=== PATIENT | female | born 1965 | race Caucasian/White ===

== ENCOUNTER 2017-09-22 11:27 | Observation (INO) | payer BC, OTHER ==
[2017-09-22 12:04] LABS: #Eosinphils 0.3 thou/uL (0.0-0.7); #Lymphocytes 2.9 thou/uL (1.20-3.40); #Monocytes 0.7 thou/uL (0.11-0.59); #Neutrophils 6.2 thou/uL (1.40-6.50); %Basophils 0.3 % (0.0-1.0); %Eosinophils 3.2 % (0.0-10.0); %Lymphocytes 28.8 % (21.0-51.0); %Monocytes 6.9 % (0.0-10.0); Hematocrit 38.2 % (36.0-47.0); Mean Platelet Volume 6.5 fL (7.4-10.4); Red Blood Cell (RBC) Count 4.08 mill/uL (4.20-5.40); White Blood Cell (WBC) Count 10.1 thou/uL (4.8-10.8)
[2017-09-22 12:22] LABS: ALT (SGPT) 34 U/L (8-55); AST (SGOT) 24 U/L (5-34); Alkaline Phosphatase 128 U/L (40-150); Anion Gap 11 mmol/L (10-20); BUN (Urea Nitrogen) 6 mg/dL (9.8-20.1); Bilirubin, Total 0.2 mg/dL (0.2-1.2); CK (CPK) 109 U/L (29-168); Calc. Creatinine Clearance 0 mL/min (70-130); Calcium 8.9 mg/dL (7.8-10.44); Carbon Dioxide 24 mmol/L (22-29); Chloride 110 mmol/L (98-107); Estimated GFR-MDRD 77; Globulin 2.5 g/dL (2.4-3.5); Lipase 13 U/L (8-78); Protein, Total 6.3 g/dL (6.0-8.3)
[2017-09-22] MEDS ORDERED: Nitroglycerin 2% Ointment 1 INCH/1 GM Packet ONE (12:24)
[2017-09-22 13:03] LABS: Troponin I Less than 0.010 ng/mL (< 0.028)
[2017-09-22] MEDS ORDERED: Senokot 8.6 MG TAB PO PRN (13:52)
[2017-09-22] MEDS ORDERED: Nitroglycerin 0.4 MG TAB (25 Tab Bottle) PO PRN (13:52)
[2017-09-22] MEDS ORDERED: Guaifenesin DM 100-10/5 ML UDCUP PO PRN (13:52)
[2017-09-22] MEDS ORDERED: Acetaminophen 325 MG TAB PO PRN (13:52)
[2017-09-22] MEDS ORDERED: Morphine PF 1 MG/ML SYR IVP PRN (14:24)
[2017-09-22 14:49] VITALS: BMI 38.0
[2017-09-22] MEDS: Sodium Chloride 0.9% 1,000 ML IV SCH (15:21)
--- NOTE | 2017-09-22 15:37 | RAD ---
PORTABLE UPRIGHT FRONTAL CHEST RADIOGRAPH: DATE: 09/22/17. COMPARISON: None. HISTORY: Chest pain. FINDINGS: There is no pneumothorax, pleural fluid, focal consolidation, or alveolar edema. Heart and mediastin al contours unremarkable. IMPRESSION: No acute findings. POS: [facility]
[2017-09-22 15:42] LABS: Troponin I 0.011 ng/mL (< 0.028)
--- NOTE | 2017-09-22 16:18 | ULT ---
BILATERAL LOWER EXTREMITY VENOUS DOPPLER WITH SPECTRAL ANALYSIS AND COLOR FLOW EVALUATION 09/22/17 HISTORY: Injury to left knee on Sunday. Left knee pain. Edema. FINDINGS: Walls scale, color flow, doppler evaluation, with spectral analysis of the bilateral lower extremity v enous structures is performed with 2D imaging. The bilateral lower extremity common femoral, superfic ial femoral, popliteal, posterior tibial, most proximal greater saphenous and profunda femoral veins are imaged. There is normal lumen compressibility, flow and augmentation visualized deep venous structures bilate ral lower extremities. IMPRESSION: No evidence of a DVT involving the visualized deep venous structures bilateral lower extremities. POS: [facility]
--- NOTE | 2017-09-22 16:51 | HP ---
REASON FOR ADMISSION: Chest pain. HISTORY OF PRESENTING ILLNESS: Patient gives history of having chest pressure which was more of burning in sensation which lasted for 10 minutes around 11 a.m. This pressure/burning was radiating up to her neck. There was also radiation of this to left axilla. She felt like she needed more air. She has never had these symptoms before, hence she called EMS. EMS on arrival gave her aspirin 325 mg and nitroglycerin which completely relieved her pain. Currently , no complaints of cough or expectoration. No history of fever. She gives history of having had cardiac catheterization done when she was 33 years old, which was normal. She also gives history of sustaining left knee injury 2 days back and has been on Ultram which she has taken yesterday and this morning. She is also on Vyvanse from last 2 weeks for low energy. PAST MEDICAL AND SURGICAL HISTORY: History of sinus arrhythmia, bipolar disorder, anxiety, urinary incontinence, appendectomy, cholecystectomy, and partial hysterectomy. CURRENT MEDICATIONS: The patient is on duloxetine 90 mg p.o. daily, Klonopin 1 mg p.o. twice daily, Vyvanse 60 mg p.o. daily, Myrbetriq daily, lithium 600 mg p.o. twice daily. ALLERGIES: Allergic to DEPAKOTE, PHENERGAN, REGLAN, THORAZINE and TRAZODONE. PERSONAL HISTORY: Does not abuse alcohol or drugs. No history of smoking. 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 FAMILY HISTORY: Mother has history of hypertension. Father at the age of 55 years and was an alcoholic and had abused drugs as well. REVIEW OF SYSTEMS: The following complete review of systems was negative, unless otherwise mentioned in the HPI or below: Constitutional: Weight loss or gain, ability to conduct usual activities. Skin: Rash, itching. Eyes: Double vision, pain. ENT/Mouth: Nose bleeding, neck stiffness, pain, tenderness. Cardiovascular: Palpitations, dyspnea on exertion, orthopnea. Respiratory: Shortness of breath, wheezing, cough, hemoptysis, fever or night sweats. Gastrointestinal: Poor appetite, abdominal pain, heartburn, nausea, vomiting, constipation, or diarrhea. Genitourinary: Urgency, frequency, dysuria, nocturia. Musculoskeletal: Pain, swelling. Neurologic/Psychiatric: Anxiety, depression. Allergy/Immunologic: Skin rash, bleeding tendency. PHYSICAL EXAMINATION: GENERAL: The patient is a 51-year-old female who is currently chest pain free. VITAL SIGNS: Blood pressure 142/101, pulse 87 per minute, respiratory rate 18 per minute, temperature 99.6 degrees Fahrenheit, saturating 92% on room air. NECK: Supple, no elevated JVD. EYES: Extraocular muscles intact. Pupils reacting to light. ORAL CAVITY: Mucous membranes are moist. No exudates or congestion. CARDIOVASCULAR SYSTEM: S1, S2 heard. Regular rhythm. RESPIRATORY SYSTEM: Air entry 1+ bilateral. No rales or rhonchi. ABDOMEN: Soft, bowel sounds heard. No tenderness, rigidity or guarding. EXTREMITIES: No peripheral edema or calf tenderness. Left knee, there is mild tenderness over the anterior aspect of the patella; otherwise, no gross effusion or deformity seen. Range of motion is normal in both lower extremities and knees. VASCULAR SYSTEM: Peripheral pulses 2+ bilateral, no ischemic ulcerations or gangrene. CENTRAL NERVOUS SYSTEM: No gross focal deficits seen. Patient is alert, awake , oriented x3. PSYCHIATRIC SYSTEM: The patient's mood is euthymic. No hallucinations or delusions. IMAGING AND LABORATORY DATA: EKG done shows normal sinus rhythm at 87 beats per minute. White count of 10, hemoglobin and hematocrit 12 and 38, platelet count 514 with 60% neutrophils, MCV is 93. Electrolytes are stable. BUN 6, creatinine 0.7, glucose 116. Liver enzymes within normal limits. First set of cardiac enzymes are negative. Albumin is 3.8. Lipase is 13. Chest x-ray by my review shows no acute cardiopulmonary abnormalities. EKG done show normal sinus rhythm at 87 beats per minute. CLINICAL IMPRESSION AND PLAN: The patient will be under observation on telemetry for chest pain, rule out acute coronary syndrome. We will obtain two more sets of troponin and a nuclear stress test. In view of elevated platelets and her recent knee injury which appears to be blunt injury, we will obtain ultrasound venous Doppler of lower extremities to rule out DVT. She has had plain x-rays done 2 days back at [facility] urgent care clinic. As far as she knows, there was no fractures. We will place her on a small dose of Lopressor with mild uncontrolled hypertension. She will be on aspirin and continue Klonopin, lithium, Myrbetriq at her home doses. We will reduce her Cymbalta 60 mg daily for now. She has mild temperature on arrival and she will be closely monitored for the same. There are no obvious signs of infection at present. CRISTINE
[2017-09-22 19:19] LABS: Troponin I Less than 0.010 ng/mL (< 0.028)
[2017-09-22] MEDS: clonazePAM 1 MG TAB PO SCH (20:56)
[2017-09-22] MEDS: Metoprolol Tartrate 25 MG TAB PO SCH (20:57)
[2017-09-22] MEDS ORDERED: FLU VACC QS2017-18 36 mo. & older 0.5 ML SYRINGE IM ONE (21:00)
--- NOTE | 2017-09-22 21:22 | CON ---
DATE OF CONSULTATION: 09/22/2017 REASON FOR CONSULTATION: Nonsustained SVT and chest pain. HISTORY OF PRESENT ILLNESS: Ms. Bronson is a pleasant 51-year-old white female who comes to the hospital for chest pain. She was admitted for rule out and is scheduled to have a stress test and echocardiogram tomorrow. During her stay, she has been on telemetry monitoring and she was found to have a run of nonsustained SVT, heart rate to 180 for about 15 beats. She was very symptomatic during the event. She has seen the irb compliance coordinator in the past since she was 33 years old. She had a heart catheterization and told everything was normal. This is in the setting of having LV dysfunction from several psych medicines according to her. Currently, she feels back to normal. She denies any chest pain, tightness, or pressure. PAST MEDICAL HISTORY: 1. History of atrial arrhythmias in the past according to her, I do not see any specific condition. 2. Bipolar disorder. 3. Anxiety. 4. Depression. 5. Urinary incontinence. PAST SURGICAL HISTORY: 1. Appendectomy. 2. Cholecystectomy. 3. Partial hysterectomy. OUTPATIENT MEDICATIONS: 1. Duloxetine. 2. Klonopin. 3. Vyvanse, this is lisdexamfetamine, she started on this two weeks ago. 4. Myrbetriq. 5. [place] 600 mg twice a day. ALLERGIES: DEPAKOTE, PHENERGAN, REGLAN, THORAZINE and TRAZODONE. SOCIAL HISTORY: No alcohol, tobacco or drugs. 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 FAMILY HISTORY: Mother with high blood pressure. Father at 55 from alcohol abuse and drugs. REVIEW OF SYSTEMS: Twelve-point review of systems was done and is all negative unless stated in the history of present illness. PHYSICAL EXAMINATION: VITAL SIGNS: Temperature 98.3, pulse 91, respiratory rate 18, satting 95% on room air, blood pressure 147/75. GENERAL: Awake, alert, oriented x3, in no distress. HEENT: Normocephalic, atraumatic. NECK: Supple. LUNGS: Clear. CARDIOVASCULAR: S1, S2, no S3, S4, no murmurs or rubs. ABDOMEN: Soft, positive bowel sounds. EXTREMITIES: No edema. SKIN: Warm and dry. LABORATORY WORK: Reviewed. White count of 10, hemoglobin 12, hematocrit 38, platelet count of 514. Chemistries are unremarkable except for glucose of 116. Troponins are negative x3. Toxicology: [place] level was slowed at 0.78. EKG is unremarkable. Chest x-ray was unremarkable. Lower extremity venous ultrasound showed no evidence of DVT. ASSESSMENT: 1. Nonsustained supraventricular tachycardia. 2. Chest pain. 3. Bipolar disorder. PLAN: Most likely SVT is related to her vyvanse use for her ADHD. She tells me that her life was really difficult without evidence, she feels she is back to normal and she would like to continue to take it. At this time, we will put her on a low dose beta lowell as her blood pressure and heart rate do allow and hopefully this will keep this at baseline. If she continues to have runs of SVT or becomes sustained, we will recommend stopping the amphetamine medication. Otherwise, continue plans on doing a nuclear stress test and echocardiogram in the morning. Thank you for letting us participate in the care of your patient. We will follow. CRISTINE
[2017-09-23] MEDS: Sodium Chloride 0.9% 1,000 ML IV SCH (05:36)
[2017-09-23 06:11] LABS: #Eosinphils 0.3 thou/uL (0.0-0.7); #Lymphocytes 2.8 thou/uL (1.20-3.40); #Monocytes 0.8 thou/uL (0.11-0.59); #Neutrophils 8.6 thou/uL (1.40-6.50); %Basophils 0.3 % (0.0-1.0); %Eosinophils 2.8 % (0.0-10.0); %Lymphocytes 22.5 % (21.0-51.0); %Monocytes 6.2 % (0.0-10.0); Hematocrit 41.1 % (36.0-47.0); Mean Platelet Volume 6.8 fL (7.4-10.4); Red Blood Cell (RBC) Count 4.37 mill/uL (4.20-5.40); White Blood Cell (WBC) Count 12.6 thou/uL (4.8-10.8)
[2017-09-23 06:33] LABS: Anion Gap 10 mmol/L (10-20); BUN (Urea Nitrogen) 6 mg/dL (9.8-20.1); Calc. Creatinine Clearance 134 mL/min (70-130); Calcium 9.3 mg/dL (7.8-10.44); Carbon Dioxide 24 mmol/L (22-29); Chloride 115 mmol/L (98-107); Cholesterol 234 mg/dl (< 200 Desired); Estimated GFR-MDRD 75; LDL Cholesterol, Calculated 163 mg/dL
[2017-09-23 06:52] LABS: Free T3 2.59 pg/mL (1.71-3.71)
[2017-09-23] MEDS: clonazePAM 1 MG TAB PO SCH (08:38)
[2017-09-23] MEDS ORDERED: Enoxaparin Sodium 40 MG/0.4 ML SYRINGE SC SCH (09:00)
[2017-09-23] MEDS ORDERED: Aspirin 325 MG TAB PO SCH (09:00)
--- NOTE | 2017-09-23 09:35 | PDOC.PN ---
- Subjective Encounter Start Date: 09/23/17 Encounter Start Time: 07:15 Subjective: is sitting on bed, no palp or chest pressure now - Objective Resuscitation Status: Resuscitation Status FULL:Full Resuscitation MAR Reviewed: Yes Vital Signs & Weight: Vital Signs (12 hours) Temp Pulse Resp BP Pulse Ox 09/23/17 07:44 96.9 F L 72 18 09/23/17 07:32 96.9 F L 72 18 145/86 H 92 L 09/23/17 05:25 98.1 F 71 18 123/67 94 L Weight Weight 228 lb 8 oz I&O: 09/22/17 09/23/17 09/24/17 06:59 06:59 06:59 Intake Total 1801 Output Total 3600 Balance -1799 Result Diagrams: 09/23/17 05:13 09/23/17 05:13 Phys Exam - Physical Examination HEENT: PERRLA, moist MMs Neck: no JVD, supple Respiratory: no wheezing, no rales Cardiovascular: RRR, no significant murmur Gastrointestinal: soft, non-tender, positive bowel sounds Musculoskeletal: no edema, pulses present Neurological: non-focal, moves all 4 limbs Psychiatric: A&O x 3 Dx/Plan (1) Chest pain Code(s): R07.9 - CHEST PAIN, UNSPECIFIED Status: Acute Qualifiers: Chest pain type: unspecified Qualified Code(s): R07.9 - Chest pain, unspecified (2) Dyslipidemia Code(s): E78.5 - HYPERLIPIDEMIA, UNSPECIFIED Status: Acute (3) Bipolar disorder Code(s): F31.9 - BIPOLAR DISORDER, UNSPECIFIED Status: Chronic Qualifiers: Psychotic features: with psychotic features (4) Anxiety Code(s): F41.9 - ANXIETY DISORDER, UNSPECIFIED Status: Chronic - Plan await echo and stress test -: brief svt episode last evening -: to f/u with her pschiatrist in [place] in 1 week -: may dc home if stress is normal and ok with cardio -: currently on small doses of cardizem and lopressor * . Review of Systems - Medications/Allergies Allergies/Adverse Reactions: Allergies Allergy/AdvReac Type Severity Reaction Status Date / Time chlorpromazine Allergy Verified 09/22/17 14:35 [From Thorazine] divalproex sodium Allergy Verified 09/22/17 14:35 [From Depakote] metoclopramide [From Reglan] Allergy Verified 09/22/17 14:35 promethazine [From Phenergan] Allergy Verified 09/22/17 14:35 trazodone Allergy Verified 09/22/17 14:35 Medications: Current Medications Acetaminophen (Tylenol) 650 mg PO Q4H PRN PRN Reason: Headache/Fever or Pain Aspirin (Aspirin) 325 mg PO DAILY [facility] Last Admin: 09/23/17 08:38 Dose: 325 mg Atorvastatin Calcium (Lipitor) 40 mg PO [facility] Clonazepam (Klonopin) 1 mg PO BID [facility] Last Admin: 09/23/17 08:38 Dose: 1 mg Diltiazem HCl (Cardizem) 30 mg PO TID [facility] Last Admin: 09/22/17 20:57 Dose: 30 mg Duloxetine HCl (Cymbalta) 60 mg PO DAILY [facility] Last Admin: 09/23/17 08:38 Dose: 60 mg Enoxaparin Sodium (Lovenox) 40 mg SC 0900 [facility] Last Admin: 09/23/17 08:38 Dose: 40 mg Guaifenesin/Dextromethorphan (Robitussin Dm) 15 ml PO Q4H PRN PRN Reason: Cough Sodium Chloride (Normal Saline 0.9%) 1,000 mls @ 70 mls/hr IV .[id number] [facility] Last Admin: 09/23/17 05:36 Dose: 1,000 mls Stebbins Carbonate (Lithobid Er) 600 mg PO BID[facility] Last Admin: 09/23/17 08:38 Dose: 600 mg Metoprolol Tartrate (Lopressor) 25 mg PO BID [facility] Last Admin: 09/22/17 20:57 Dose: 25 mg Mirabegron (Myrbetriq Er) 25 mg PO DAILY [facility] Last Admin: 09/23/17 08:38 Dose: 25 mg Morphine Sulfate (Duramorph) 2 mg IVP Q4H PRN PRN Reason: Chest Pain/BP Elevations Nitroglycerin (Nitrostat) 0.4 mg PO Q5MIN PRN PRN Reason: Chest Pain Senna (Senokot) 2 tab PO HSPRN PRN PRN Reason: Constipation
[2017-09-23 12:10] VITALS: BP 163/79; TEMP 98.3
[2017-09-23] MEDS: Metoprolol Tartrate 25 MG TAB PO SCH (14:11)
[2017-09-23] MEDS ORDERED: ADENOSINE 60 MG/20 ML VIAL ONE (14:43)
--- NOTE | 2017-09-23 14:55 | NM ---
STRESS-ONLY MYOCARDIAL PERFUSION STUDY: DATE: 09/23/17. HISTORY: Chest pain. RADIOPHARMACEUTICAL: 27.8 mCi Technetium 99m sestamibi, IV at stress. MEDICATIONS: 19.2 mL (57.7 mg) adenosine, IV. FINDINGS: There is normal uptake of radiotracer seen within the left ventricular myocardium on the stress acqui sition. No defect is seen. The rotated planar images demonstrate prominence of breast attenuation. Gated images show normal ventricular wall motion and wall thickening. The calculated left ventricul ar ejection fraction is 80%. Quantitative analysis shows no significant defect on attenuation-correc gal images. IMPRESSION: 1. Normal myocardial perfusion study without evidence of defect seen in the left ventricular myocard ium to suggest ischemia or scarring. 2. Normal left ventricular function with normal left ventricular ejection fraction of 80%. POS: [facility]
--- NOTE | 2017-09-23 15:49 | PDOC.CTH ---
Cardiology Progress Note - Subjective Patient seen earlier today. This is a late entry. She is doing well. No chest pain, tightness, pressure, SOB. Her stress was normal - Objective Vital Signs Temp Pulse Resp BP Pulse Ox 09/23/17 12:08 98.3 F 75 18 163/79 H 98 09/23/17 07:44 96.9 F L 72 18 09/23/17 07:32 96.9 F L 72 18 145/86 H 92 L 09/23/17 05:25 98.1 F 71 18 123/67 94 L Weight 228 lb 8 oz 09/22/17 09/23/17 09/24/17 06:59 06:59 06:59 Intake Total 1801 1231 Output Total 3600 900 Balance -1799 331 - Physical Examination General/Neuro: alert & oriented x3, NAD Neck: no JVD present Lungs: unlabored respirations Heart: RRR Abdomen: NT/ND Extremities: other: (no edema) - Telemetry Telemetry Rhythm: NSR - Labs Result Diagrams: 09/23/17 05:13 09/23/17 05:13 Troponin/CKMB CK-MB (CK-2) 2.1 ng/mL (0-6.6) 09/22/17 11:52 Troponin I Less than 0.010 ng/mL (< 0.028) 09/22/17 18:23 - Assessment/Plan 1. Non sustained SVT 2. chest pain 3. ADHD on Vyvanse (lisdexamphetamine) PLAn - May discharge home - Low dose BB for now. - Follow up in 1 month.
--- NOTE | 2017-09-23 18:11 | DIS ---
DATE OF ADMISSION: 09/22/2017 DATE OF DISCHARGE: 09/23/2017 DISCHARGE DISPOSITION: To home. PRIMARY DISCHARGE DIAGNOSIS: Chest pain/pressure which is noncardiac. SECONDARY DISCHARGE DIAGNOSES: Bipolar disorder, dyslipidemia, anxiety. PROCEDURES DONE DURING HOSPITALIZATION: The patient has had an echo with 2D Doppler done which showed ejection fraction of 60-65%. Chest x-ray done showed no acute cardiopulmonary abnormalities. Nuclear stress test done showed ejection fraction of 80% with no wall motion abnormalities or reversible ischemia seen. H and H 13 and 41, platelet count 564. Troponin x3 negative. Total cholesterol 234, triglycerides 117, LDL was 163 with HDL of 48. TSH 1.98 , free T3 of 2.5, free T4 of 0.86. Her lithium levels were 0.78. DISCHARGE MEDICATIONS: Patient to continue all her home medications as before along with Lopressor 25 mg p.o. twice daily and Lipitor 40 mg p.o. at bedtime. Please note patient is on Klonopin 1 mg twice daily, duloxetine 90 mg daily, Viberzi 75 mg at bedtime, lithium 600 mg twice daily, Myrbetriq 50 mg daily, olanzapine 5 mg at bedtime, Ultram p.r.n. for pain. ALLERGIES: She is allergic to CHLORPROMAZINE, DEPAKOTE and REGLAN. DISCHARGE PLAN: Patient to follow up with her psychiatrist in 1 week. She also needs to find a new primary care physician and follow up within 1-2 weeks. INPATIENT CONSULTS: Dr. Mohan for Cardiology. BRIEF COURSE DURING HOSPITALIZATION: Patient initially came to ER with complaints of chest pressure/burning sensation with radiation to neck and left axilla. She had also started new medications and had been escalating her Vyvanse dose from last 2 weeks for her low energy. In view of this history, the patient was placed under observation on telemetry. She has had 3 sets of troponin done which were negative. Nuclear stress test done showed no reversible ischemia. Echo has not revealed any abnormality. She had brief 10 beat SVT and has had consultation with Dr. Mohan of Cardiology. Likely her nonsustained SVT is likely due to her escalating doses of Vyvanse. She has been advised to follow up with her psychiatrist in 1 week. The patient is on multiple psychotropic medications and this needs to be addressed by her psychiatrist. She is also placed on Lipitor for her LDL of 163. She is hemodynamically stable and will be shortly discharged home. Please see a face to face documentation on [facility] for the day of discharge. CRISTINE
[2017-09-23] MEDS ORDERED: Atorvastatin Calcium 40 MG TAB PO SCH (21:00)
--- NOTE | 2017-09-24 04:30 | STRESS ---
Acquisition Time: 2017-09-23 10:23:53 Total Exercise Time: 00:04:00 Test Indications: CHEST PAIN Medications: Protocol: ADENOSINE Max HR: 093 BPM 55% of Pred: 169 BPM Max BP: 144/072 mmHG Max Work Load: 1.0 METS RESTING ECG: NORMAL SINUS RHYTHM AT 71 BPM WITH INCOMPLETE RIGHT BUNDLE BRANCH BLOCK SYMPTOMS: CHEST PAIN, DYSPNEA, AND FLUSHING NORMAL BP RESPONSE ECTOPY: NONE ECG STRESS: NO SIGNIFICANT CHANGES INTERPRETATION: NEGATIVE ECG/AWAIT NUCLEAR IMAGES FOR DEFINITIVE DIAGNOSIS Confirmed by ROSMERY BELTRAN M.D. ([id number]) on 09/24/2017 4:29:37 AM Referred By: MD Ruma LEGGETT Confirmed By:ROSMERY BELTRAN M.D.
== END 2017-09-23 14:26 | disposition home or self-care (01) ==
LOC: ERS 11:27 → 2SW 13:38
PROVIDERS: ADMIT Internal Medicine; ATTEND Internal Medicine
DX: R07.89 Other chest pain (principal); F31.9 Bipolar disorder, unspecified; F41.9 Anxiety disorder, unspecified; E78.5 Hyperlipidemia, unspecified; I49.9 Cardiac arrhythmia, unspecified; R32 Unspecified urinary incontinence; I47.1 Supraventricular tachycardia; F90.9 Attention-deficit hyperactivity disorder, unspecified type; Z79.899 Other long term (current) drug therapy; Z88.8 Allergy status to other drugs, medicaments and biological substances; Z90.49 Acquired absence of other specified parts of digestive tract; Z90.711 Acquired absence of uterus with remaining cervical stump; Z87.891 Personal history of nicotine dependence
CPT/HCPCS: 36415; 36416; 71010; 78452; 80048; 80053; 80061; 80178; 82553; 83690; 84439; 84443; 84481; 84484; 85025; 90471; 90682; 93005; 93010; 93017; 93306; 93970; 94760; 96360; 96361; 96372; A9500; G0008; G0378; J0153; J1650; Q2036

== ENCOUNTER 2017-09-27 15:20 | Emergency (ER) | payer OTHER ==
--- NOTE | 2017-09-27 16:41 | RAD ---
CHEST ONE VIEW: History: Chest pain. Comparison: 09-22-17 FINDINGS: Portable upright chest. Normal cardiac silhouette. The pulmonary vessels and hilum are normal. No mas ses or consolidation. No osseous abnormalities or pneumothorax. IMPRESSION: No acute cardiopulmonary process. POS: [facility]
[2017-09-27 17:14] LABS: #Lymphocytes 2.6 thou/uL (1.20-3.40); #Monocytes 0.7 thou/uL (0.11-0.59); %Basophils 0.1 % (0.0-1.0); %Eosinophils 0.3 % (0.0-10.0); %Monocytes 5.5 % (0.0-10.0); Hematocrit 41.2 % (36.0-47.0); Mean Platelet Volume 6.5 fL (7.4-10.4); White Blood Cell (WBC) Count 12.3 thou/uL (4.8-10.8)
[2017-09-27 17:38] LABS: ALT (SGPT) 37 U/L (8-55); AST (SGOT) 22 U/L (5-34); Alkaline Phosphatase 144 U/L (40-150); Anion Gap 11 mmol/L (10-20); BUN (Urea Nitrogen) 15 mg/dL (9.8-20.1); Bilirubin, Total 0.3 mg/dL (0.2-1.2); CK (CPK) 72 U/L (29-168); Calc. Creatinine Clearance 0 mL/min (70-130); Calcium 9.8 mg/dL (7.8-10.44); Carbon Dioxide 24 mmol/L (22-29); Chloride 110 mmol/L (98-107); Estimated GFR-MDRD 54; Globulin 2.8 g/dL (2.4-3.5); Protein, Total 6.8 g/dL (6.0-8.3)
[2017-09-27 17:41] LABS: Troponin I Less than 0.010 ng/mL (< 0.028)
== END 2017-09-27 18:08 | disposition home or self-care (01) ==
LOC: ERS 15:20
DX: R07.89 Other chest pain (principal); E78.00 Pure hypercholesterolemia, unspecified; F31.9 Bipolar disorder, unspecified; I10 Essential (primary) hypertension; I47.1 Supraventricular tachycardia
CPT/HCPCS: 36415; 71010; 80053; 82550; 82553; 84484; 85025; 93005

== ENCOUNTER 2017-10-04 15:45 | Emergency (ER) | payer OTHER ==
[2017-10-04 16:30] LABS: #Lymphocytes 3.2 thou/uL (1.20-3.40); #Monocytes 0.8 thou/uL (0.11-0.59); #Neutrophils 8.8 thou/uL (1.40-6.50); %Basophils 0.2 % (0.0-1.0); %Eosinophils 0.2 % (0.0-10.0); %Lymphocytes 24.8 % (21.0-51.0); %Monocytes 6.6 % (0.0-10.0); Hematocrit 41.1 % (36.0-47.0); Mean Platelet Volume 6.5 fL (7.4-10.4); Red Blood Cell (RBC) Count 4.38 mill/uL (4.20-5.40); White Blood Cell (WBC) Count 12.8 thou/uL (4.8-10.8)
[2017-10-04 16:51] LABS: ALT (SGPT) 23 U/L (8-55); AST (SGOT) 13 U/L (5-34); Alkaline Phosphatase 145 U/L (40-150); Anion Gap 10 mmol/L (10-20); BUN (Urea Nitrogen) 7 mg/dL (9.8-20.1); Bilirubin, Total 0.3 mg/dL (0.2-1.2); CK (CPK) 61 U/L (29-168); Calc. Creatinine Clearance 0 mL/min (70-130); Calcium 9.4 mg/dL (7.8-10.44); Carbon Dioxide 27 mmol/L (22-29); Chloride 107 mmol/L (98-107); Estimated GFR-MDRD 72
--- NOTE | 2017-10-04 17:48 | RAD ---
AP VIEW OF THE CHEST 10/04/17 INDICATION: Intermittent chest pain. IMPRESSION: There is bibasilar atelectasis. COMMENTS: No pleural effusion or pneumothorax evident. No acute osseous abnormality is evident. The examination is otherwise stable to a comparison dated 09/27/17. POS: [facility]
[2017-10-04 18:54] LABS: Troponin I Less than 0.010 ng/mL (< 0.028)
== END 2017-10-04 19:37 | disposition home or self-care (01) ==
LOC: ERS 15:45
DX: R07.9 Chest pain, unspecified (principal); E78.00 Pure hypercholesterolemia, unspecified; F31.9 Bipolar disorder, unspecified
CPT/HCPCS: 36415; 71010; 80053; 82550; 82553; 84484; 85025; 93005; 94760

== ENCOUNTER 2017-10-05 12:59 | Observation (INO) | payer OTHER ==
[2017-10-05 14:02] LABS: #Lymphocytes 2.8 thou/uL (1.20-3.40); #Monocytes 0.8 thou/uL (0.11-0.59); #Neutrophils 9.3 thou/uL (1.40-6.50); %Basophils 0.2 % (0.0-1.0); %Eosinophils 0.2 % (0.0-10.0); %Lymphocytes 21.5 % (21.0-51.0); %Monocytes 6.4 % (0.0-10.0); %Neutrophils 71.7 % (42.0-75.0); Hemoglobin 13.8 g/dL (12.0-16.0); Mean Corpuscular HGB CONC 32.5 g/dL (32.0-36.0); Mean Corpuscular Hemoglobin 30.4 pg (27.0-31.0); Mean Corpuscular Volume 93.7 fl (81.0-99.0); Mean Platelet Volume 6.8 fL (7.4-10.4); Platelet Count 570 thou/uL (130-400); RBC Distribution Width 11.5 % (11.5-14.5); Red Blood Cell (RBC) Count 4.55 mill/uL (4.20-5.40)
--- NOTE | 2017-10-05 14:14 | RAD ---
FRONTAL VIEW CHEST: INDICATIONS: Emergency exam. New onset chest pain. COMPARISON: 10/04/2017 FINDINGS: Minimal linear density in each lower lung zone present, less conspicuous comparing to examination fro m the previous day, favoring atelectasis. The cardiac silhouette is accentuated by the portable tech nique. Otherwise, no significant interval change. IMPRESSION: Interval decreased conspicuity of bibasilar linear densities, favoring areas of atelectasis. POS: [facility]
[2017-10-05 14:36] LABS: ALT (SGPT) 24 U/L (8-55); AST (SGOT) 19 U/L (5-34); Albumin 4.1 g/dL (3.5-5.0); Alkaline Phosphatase 151 U/L (40-150); Anion Gap 12 mmol/L (10-20); BUN (Urea Nitrogen) 12 mg/dL (9.8-20.1); Bilirubin, Total 0.3 mg/dL (0.2-1.2); CK (CPK) 73 U/L (29-168); Calc. Creatinine Clearance 0 mL/min (70-130); Calcium 9.4 mg/dL (7.8-10.44); Carbon Dioxide 24 mmol/L (22-29); Chloride 108 mmol/L (98-107); Estimated GFR-MDRD 72; Globulin 2.9 g/dL (2.4-3.5); Glucose 110 mg/dL (70-105); Potassium 3.8 mmol/L (3.5-5.1); Sodium 140 mmol/L (136-145)
[2017-10-05 14:37] LABS: CKMB 1.2 ng/mL (0-6.6); Troponin I Less than 0.010 ng/mL (< 0.028)
[2017-10-05] MEDS ORDERED: Senokot 8.6 MG TAB PO PRN (16:29)
[2017-10-05] MEDS ORDERED: Acetaminophen 325 MG TAB PO PRN (16:29)
[2017-10-05] MEDS ORDERED: hydrALAZINE 20 MG/ML VIAL SLOW IVP PRN (16:31)
[2017-10-05] MEDS ORDERED: cloNIDine 0.1 MG TAB PO PRN (16:31)
[2017-10-05 16:38] VITALS: BMI 41.1
--- NOTE | 2017-10-05 16:46 | HP ---
DATE OF ADMISSION: 10/05/2017 PRIMARY CARE PHYSICIAN: Terri willard. PRIMARY EARLY HEAD START TEACHER: Luis Armando Mohan M.D. REASON FOR COMPLAINT: Chest discomfort. HISTORY OF PRESENT ILLNESS: Patient is a 51-year-old female with dyslipidemia, nonsustained SVT, presented to the emergency room with above complaints. The patient was admitted at this facility from 09/22/2017-09/23/2017 with chest discomfort. Cardiolite stress test was performed that was negative for reversible ischemia. There was no wall motion abnormality found. She was seen by Cardiology, Dr. Mohan and was discharged home. Due to persistent chest pain , she is scheduled for cardiac catheterization on 10/10/2017. The patient presented to the emergency room with recurrent episodes of chest discomfort. This morning, her chest pain was intense and did not improve with nitroglycerin. Normally, her pain improves with nitroglycerin. It was substernal, dull in nature, associated with nausea. She denies any vomiting, diaphoresis, palpitations or syncope. No recent immobilization or travel reported. She denies any exertional shortness of breath. In the emergency room, her initial vital signs showed temperature of 99.2, respiration of 18, pulse of 85, and blood pressure of 114/76 with O2 saturation 95% on room air. Her EKG showed sinus rhythm without significant ST-T wave changes. Her troponins were negative. The case was discussed with Cardiology; Dr. Mohan who recommended hospital admission and inpatient cardiac catheterization. PAST MEDICAL HISTORY: 1. Anxiety. 2. Dyslipidemia. 3. Bipolar disorder. 4. Nonsustained supraventricular tachycardia. 5. Recent negative Cardiolite stress test. PAST SURGICAL HISTORY: 1. Appendectomy 2. Cholecystectomy 3. Partial hysterectomy. ALLERGIES: Patient is allergic to DEPAKOTE, PHENERGAN, REGLAN, THORAZINE, and trazodone. CURRENT HOME MEDICATIONS: Patient does not remember any of her home medications. We will try to obtain from the family. SOCIAL HISTORY: Patient currently lives at home. 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 No alcohol, tobacco or drug use. FAMILY HISTORY: Negative for premature coronary artery disease. Mother with high blood pressure. REVIEW OF SYSTEMS: The following complete review of systems was negative, unless otherwise mentioned in the HPI or below: Constitutional: Weight loss or gain, ability to conduct usual activities. Skin: Rash, itching. Eyes: Double vision, pain. ENT/Mouth: Nose bleeding, neck stiffness, pain, tenderness. Cardiovascular: Palpitations, dyspnea on exertion, orthopnea. Respiratory: Shortness of breath, wheezing, cough, hemoptysis, fever or night sweats. Gastrointestinal: Poor appetite, abdominal pain, heartburn, nausea, vomiting, constipation, or diarrhea. Genitourinary: Urgency, frequency, dysuria, nocturia. Musculoskeletal: Pain, swelling. Neurologic/Psychiatric: Anxiety, depression. Allergy/Immunologic: Skin rash, bleeding tendency. PHYSICAL EXAMINATION: VITAL SIGNS: As discussed above. GENERAL: A 51-year-old female in no apparent distress. Chest discomfort has improved. HEENT: Atraumatic, normocephalic. Sclerae are anicteric. Moist mucous membrane. No oral lesion. NECK: Supple, no JVD appreciated. No carotid bruit. LUNGS: Clear to auscultation bilaterally. HEART: S1, S2 present. Regular rate and rhythm. No murmurs, rubs or gallops appreciated. ABDOMEN: Soft, nontender, bowel sounds present. EXTREMITIES: No edema or calf tenderness. NEUROLOGIC: Grossly nonfocal, moves all four extremities. PSYCHIATRY: Alert, awake, and oriented x3. SKIN: Warm and dry. LYMPH NODES: No palpable lymph nodes in the neck. PERIPHERAL VASCULAR: Radial pulses palpable bilaterally. MUSCULOSKELETAL: No joint swelling or tenderness. LABORATORY DATA AND X-RAY FINDINGS: CBC showed WBC of 13 with hemoglobin 13.8, hematocrit 42.6, and platelet 570. Chemistries showed sodium 140, potassium 3.8 , chloride 108, bicarbonate 24, BUN of 12, creatinine 0.83. [place] level recently was 0.783. EKG and chest x-ray by my review as discussed above. IMPRESSION AND PLAN: 1. Chest discomfort. Patient will be monitored on the telemetry unit. We will get serial cardiac enzymes. Cardiology has been notified. The patient will be kept n.p.o. past midnight for cardiac catheterization in a.m. 2. History of supraventricular tachycardia. We will continue telemetry monitoring. She recently had extensive workup including negative thyroid function studies. 3. Hyperlipidemia. Lifestyle modification emphasized. 4. Anxiety. We will resume home medications once confirmed. 5. Bipolar disorder. 6. Morbid obesity BMI 41 Plan of care was discussed with the patient. She stated understanding. MTDD
[2017-10-05 17:24] LABS: Troponin I Less than 0.010 ng/mL (< 0.028)
--- NOTE | 2017-10-05 18:42 | CON ---
DATE OF CONSULTATION: 10/05/2017 REASON FOR CONSULTATION: Chest pain. HISTORY OF PRESENT ILLNESS: Mrs. Bronson is a very pleasant 51-year-old white female who comes to the hospital for chest pain. She was seen about 2 weeks ago here for chest pain. She had a little run of SVT which was symptomatic. This was very different from her episodes of chest pain. She was rule d out with negative enzymes and a stress test that was normal. She was discharged home after that. I followed up with her earlier this week and she continued to have episodes of chest pain, so the luis n was to do a heart catheterization next week. She was scheduled for Sunday. She came to the ER yesterday for chest pain. She was ruled out and sent home for a scheduled procedure, but she came ba again today as she continued to have episodes of chest pain. So, she is being admitted for this. So far, she continues to have negative troponins. Her white count is a little bit elevated, normal BNP. PAST MEDICAL HISTORY: 1. History of atrial arrhythmias, nonsustained SVT. 2. Bipolar disorder. 3. Anxiety and depression. 4. Urinary incontinence. 5. ADHD. PAST SURGICAL HISTORY: 1. Appendectomy. 2. Cholecystectomy. 3. Partial hysterectomy. OUTPATIENT MEDICATIONS: Include, 1. Duloxetine. 2. Klonopin. 3. Vyvanse. 4. Myrbetriq. 5. [place]. ALLERGIES: DEPAKOTE, PHENERGAN, REGLAN, THORAZINE and TRAZODONE. SOCIAL HISTORY: No alcohol, tobacco or drugs. FAMILY HISTORY: Noncontributory. REVIEW OF SYSTEMS: Twelve-point review of systems was done and is all negative unless stated in the history of present illness. PHYSICAL EXAMINATION: VITAL SIGNS: Temperature 98.0, pulse 83, respiration rate 18, satting 97% on room air, blood pressur e 140/76. GENERAL: Awake, alert, oriented x3, in no distress. HEENT: Normocephalic, atraumatic. NECK: Supple. LUNGS: Clear. CARDIOVASCULAR: S1, S2, no S3, S4, no murmurs or rubs. ABDOMEN: Soft. Positive bowel sounds. EXTREMITIES: No edema. SKIN: Warm and dry. LABORATORY WORK: Reviewed. CBC is unremarkable except for white count of 13, platelet count was 570 , hemoglobin 13. Chemistries unremarkable as well. Troponin undetectable. BNP is normal. EKG was unremarkable. ASSESSMENT AND PLAN: Chest pain: Recurrent despite negative stress test and normal echocardiogram. We will plan on further risk stratification with heart catheterization. I spoke at length about the risks and benefits of the procedure. The risks include, but not limited to stroke, [place], , bleed ing and need for blood transfusion, limb loss, organ loss, vessel injury, needing for surgical vascul ar repair. The patient verbalizes understanding of this, she agrees to proceed. We will plan on [facility] ng this tomorrow morning.
[2017-10-05] MEDS: Nitroglycerin 0.4 MG TAB (25 Tab Bottle) PO PRN ×2 (18:47→18:56)
[2017-10-05] MEDS: Metoprolol Tartrate 25 MG TAB PO SCH (19:52)
[2017-10-05] MEDS: Famotidine 20 MG TAB PO SCH (19:52)
[2017-10-05] MEDS ORDERED: traMADol HCl 50 MG TAB PO PRN ×2 (19:56→20:07)
[2017-10-05 20:34] LABS: Troponin I Less than 0.010 ng/mL (< 0.028)
[2017-10-05] MEDS: clonazePAM 1 MG TAB PO SCH (20:53)
[2017-10-05] MEDS: Atorvastatin Calcium 40 MG TAB PO SCH (20:53)
[2017-10-05] MEDS ORDERED: Metoprolol Tartrate 25 MG TAB PO SCH (21:00)
[2017-10-06] MEDS ORDERED: Sodium Chloride 0.9% 10 ML ONE (04:26)
[2017-10-06] MEDS: DULoxetine 30 MG CAP PO SCH (09:47)
[2017-10-06] MEDS: clonazePAM 1 MG TAB PO SCH ×2 (09:48→19:37)
[2017-10-06] MEDS: Aspirin 325 MG TAB PO SCH (09:48)
[2017-10-06] MEDS: Metoprolol Tartrate 25 MG TAB PO SCH ×2 (09:49→19:37)
[2017-10-06] MEDS: Famotidine 20 MG TAB PO SCH ×2 (09:49→19:37)
--- NOTE | 2017-10-06 13:37 | PRG ---
DATE OF SERVICE: 10/06/2017 SUBJECTIVE: The patient was seen and examined at bedside. She is doing well. She does not have [address] pain anymore. She is not short of breath. She is awaiting her cardiac catheterization, which is supposed to be done this morning. OBJECTIVE: VITAL SIGNS: Blood pressure 109/55, pulse is 74, temperature 97.9, respiratory rate is 20 and O2 sat uration is 96% on room air. HEENT: Atraumatic and normocephalic. Eyes are PERRLA. Conjunctivae pinkish. Oral mucosa is moist. NECK: Supple. No lymphadenopathy. LUNGS: Clear. HEART: S1 and S2 normal. ABDOMEN: Soft and nontender. EXTREMITIES: No clubbing, cyanosis or edema. NEUROLOGIC: She is alert and oriented x4. There is no any motor or sensory deficits present. Crani al nerves are intact. LABORATORY DATA: Showed none this morning. IMPRESSION: 1. Recurrent chest pain with unremarkable EKG and unclear etiology of the pain. Cardiology has deci ded to do cardiac catheterization to rule out coronary arteries as the source of the pain and she is awaiting for that. 2. History of supraventricular tachycardia. 3. Hyperlipidemia. 4. Anxiety. 5. Bipolar disorder. 6. Morbid obesity with a BMI of 41. PLAN: To get cardiac catheterization done today as the final diagnosis. For now, we will continue c urrent regimen and most likely if she has normal coronary arteries, she will be sent home later today .
[2017-10-06] MEDS: ELUXADOLINE 75 MG PO SCH ×2 (15:11→19:38)
--- NOTE | 2017-10-06 15:47 | PDOC.CTH ---
Cardiology Progress Note - Subjective No new issues. Continues to have episodes of chest pain. - Objective Vital Signs Temp Pulse Resp BP Pulse Ox 10/06/17 11:00 98.0 F 71 20 121/58 L 94 L 10/06/17 07:56 97.5 F L 71 18 10/06/17 07:12 97.9 F 74 20 109/55 L 96 10/06/17 04:50 96 Weight 222 lb 10/05/17 10/06/17 10/07/17 06:59 06:59 06:59 Intake Total 1440 Output Total 2800 Balance -1360 - Physical Examination General/Neuro: alert & oriented x3, NAD Neck: no JVD present Lungs: CTA, unlabored respirations Heart: RRR Abdomen: NT/ND Extremities: other: (no edema.) - Telemetry Telemetry Rhythm: NSR - Labs Result Diagrams: 10/05/17 13:52 10/05/17 13:52 Troponin/CKMB CK-MB (CK-2) 1.2 ng/mL (0-6.6) 10/05/17 13:52 Troponin I Less than 0.010 ng/mL (< 0.028) 10/05/17 19:51 - Assessment/Plan 1. Chest pain 2. ADHD 3. Non sustained SVT, none seen since starting BB PLAN: - LHC in the morning. - We have spoken at length about risks and benefits and she agrees to proceed. JOSLYN if needed.
[2017-10-06] MEDS: Atorvastatin Calcium 40 MG TAB PO SCH (19:37)
[2017-10-07] MEDS: clonazePAM 1 MG TAB PO SCH (05:34)
[2017-10-07] MEDS: DULoxetine 30 MG CAP PO SCH (05:34)
[2017-10-07] MEDS: Aspirin 325 MG TAB PO SCH (05:34)
[2017-10-07] MEDS: Famotidine 20 MG TAB PO SCH (05:35)
[2017-10-07] MEDS: Metoprolol Tartrate 25 MG TAB PO SCH (05:36)
[2017-10-07] MEDS ORDERED: Heparin 1000 UNIT/NS 500ML(OR) 1,000 ML ONE (07:23)
[2017-10-07] MEDS ORDERED: Verapamil 5 MG/2 ML VIAL ONE (07:51)
[2017-10-07] MEDS ORDERED: Heparin 10,000 UNITS/1 ML VIAL ONE (07:51)
[2017-10-07] MEDS ORDERED: Nitroglycerin 100MG/250ML BOT 250 ML ONE (07:51)
[2017-10-07] MEDS ORDERED: Fentanyl 100 MCG/2 ML VIAL ONE (07:58)
[2017-10-07] MEDS ORDERED: Midazolam HCl 2 mg/2 ml Vial ONE (07:58)
[2017-10-07] MEDS ORDERED: Acetaminophen/Codeine 30-300mg Tablet PO PRN (08:43)
[2017-10-07] MEDS ORDERED: Sodium Chloride 0.9% 1,000 ML IV SCH (08:45)
[2017-10-07 09:06] VITALS: TEMP 98.7
[2017-10-07] MEDS ORDERED: Iopamidol 370 76% 100 ML VIAL ONE (11:14)
[2017-10-07 11:27] VITALS: BP 107/62
--- NOTE | 2017-10-08 01:07 | DIS ---
DATE OF ADMISSION: 10/05/2017 DATE OF DISCHARGE: 10/07/2017 FINAL DIAGNOSES: 1. Chest pain, acute coronary syndrome was ruled out. The patient had cardiac catheterization, whic h did not show any coronary artery disease. 2. Anxiety. 3. Bipolar disorder. 4. Hyperlipidemia. 5. History of supraventricular tachycardia. 6. Morbid obesity with BMI of 41. CONSULTATIONS: Dr. Mohan, Cardiology Service. PROCEDURE: Cardiac catheterization. HOSPITAL COURSE: The patient is a 51-year-old female with history of dyslipidemia, nonsust ained SVT, who presented to the emergency room with complaints of chest discomfort. Apparently, she was hospitalized on the 09/22/2017 to 09/23/2017 in this facility when she underwent a Cardiolite str ess test, which was negative for any reversible ischemia. There was no any wall motion abnormality. The patient was seen by labor relations consultant, Dr. Mohan, who decided to discharge the patient home and sche dule her for a cardiac catheterization on 10/10/2017 since she was still complaining about some ches t discomfort. Before the time for her scheduled cardiac catheterization, she developed more chest p ain and she came to the emergency room, was evaluated and got admitted for further evaluation. Pain was substernal, dull in nature associated with nausea. She denied any vomiting, diaphoresis, palpita tions or syncope. She denied any exertional shortness of breath. At the time of admission, her EKG shows sinus rhythm without significant ST-T wave changes. Her troponins were negative. The patient got admitted to the hospital and underwent cardiac catheterization, which was basically negative for any plug, and she is doing well. PHYSICAL EXAMINATION: VITAL SIGNS: Her blood pressure is 129/61, pulse is 76, respiratory rate is 18, and O2 saturations 9 6% on room air. LUNGS: Clear. CARDIOVASCULAR: S1, S2 normal. She is discharged home in good condition. Her point of entry for the cardiac catheterization looks g ood. There was not any suspicion for aneurysm or bleeding. She is discharged home in good condition on a heart healthy diet. Activities per post-cardiac cath protocol. DISCHARGE MEDICATIONS: Olanzapine 5 mg at bedtime, nitroglycerin p.r.n., metoprolol tartrate 25 mg t wice a day, lisinopril 5 mg daily, Vyvanse 60 mg every morning, Viberzi 75 mg at bedtime, Myrbetriq 5 0 mg daily, tramadol 50 mg tablet 1-2 three times a day as needed, lithium carbonate 600 mg twice a d ay, duloxetine 90 mg daily, clonazepam 1 mg tablet twice a day, and atorvastatin 40 mg at bedtime. The patient is going to have for 10/09/2017, and she will follow with her primary care nirmala boogie in 1 week. She was seen and examined before she is discharged and discharge time is less than 30 m inutes.
--- NOTE | 2017-10-09 05:39 | EKG ---
Test Reason : STAT Blood Pressure : / mmHG Vent. Rate : 088 BPM Atrial Rate : 088 BPM P-R Int : 140 ms QRS Dur : 092 ms QT Int : 382 ms P-R-T Axes : 028 -15 033 degrees QTc Int : 462 ms Normal sinus rhythm Normal ECG When compared with ECG of 04-OCT-2017 15:53, (Unconfirmed) No significant change was found Confirmed by DEBBIE BAILEY ([id number]) on 10/09/2017 5:38:48 AM Referred By: RAYA Confirmed By:DEBBIE BAILEY
--- NOTE | 2017-12-01 14:08 | EKG ---
Test Reason : CHEST PAIN Blood Pressure : / mmHG Vent. Rate : 089 BPM Atrial Rate : 089 BPM P-R Int : 134 ms QRS Dur : 092 ms QT Int : 356 ms P-R-T Axes : 020 000 037 degrees QTc Int : 433 ms Poor data quality, interpretation may be adversely affected Normal sinus rhythm Normal ECG Confirmed by EDISON MEJÍA, JOLEEN ([id number]), department editor PATRICIA VEE ([id number] on 12/01/2017 2:07:31 PM Referred By: EDISON Confirmed By:JOLEEN HOGAN MD
== END 2017-10-07 12:40 | disposition home or self-care (01) ==
LOC: ERS 12:59 → 2SW 16:16
PROVIDERS: ADMIT Internal Medicine; ATTEND Internal Medicine
DX: R07.2 Precordial pain (principal); F41.9 Anxiety disorder, unspecified; F31.9 Bipolar disorder, unspecified; E78.5 Hyperlipidemia, unspecified; F41.8 Other specified anxiety disorders; F90.9 Attention-deficit hyperactivity disorder, unspecified type; R32 Unspecified urinary incontinence; I47.1 Supraventricular tachycardia; R11.0 Nausea; E66.01 Morbid (severe) obesity due to excess calories; Z68.41 Body mass index [BMI] 40.0-44.9, adult; Z79.899 Other long term (current) drug therapy; Z88.8 Allergy status to other drugs, medicaments and biological substances; Z90.711 Acquired absence of uterus with remaining cervical stump; Z90.49 Acquired absence of other specified parts of digestive tract
CPT/HCPCS: 36415; 71010; 80053; 82553; 83880; 84484; 85025; 93005; 93010; 93458; 94760; 96360; 96361; 99152; A4216; C1769; G0378; J1644; J2250; J3010